=== PATIENT | female | born 1945 | race Caucasian/White ===

== ENCOUNTER 2017-03-01 15:00 | Emergency (ER) | payer OTHER ==
[2017-03-01 15:32] VITALS: BP 146/92; PULSE 76; TEMP 97.9; BMI 21.9
[2017-03-01] MEDS ORDERED: ACETAMINOPHEN 325 MG TABLET (FP) PO ONE (15:36)
--- NOTE | 2017-03-01 15:36 | PDOC ---
History of Present Illness - General History Source: Patient Exam Limitations: No Limitations - History of Present Illness Initial Comments: The patient is a 71 year old female who presents to the emergency department today for further evaluation of left hip pain for 2 days. The patient notes that she had hip surgery in March (2015). The patient states that her pain was untriggered and is exacerbated by walking and going up stairs. The patient took aleve and muscle relaxants in addition to ice packs and reports some relief of pain. She denies any other complaints at this time. The patient denies fever, chills, and sweats. The patient denies nausea, vomiting, and diarrhea. The patient denies chest pain, cough, and shortness of breath. PCP: Dr. Palma [phone] <Dony Jade - Last Filed: 03/01/17 15:54> <Danya Ruiz - Last Filed: 03/01/17 16:35> - General Chief Complaint: Pain Stated Complaint: LEFT HIP PAIN Time Seen by Provider: 03/01/17 15:13 Past History <Dony Jade - Last Filed: 03/01/17 15:54> - Past Medical History Hypercholesterolemia: Yes Other medical history: REYNAUDS, ARTHRITIC KNEES, - Psycho/Social/Smoking Cessation Hx Anxiety: No Suicidal Ideation: No Smoking History: Never smoked Hx Alcohol Use: Yes (NIGHTLY WINE) Drug/Substance Use Hx: No Substance Use Type: None <Danya Ruiz - Last Filed: 03/01/17 16:35> - Past Medical History Allergies/Adverse Reactions: Allergies Allergy/AdvReac Type Severity Reaction Status Date / Time turmeric AdvReac Unknown Verified 03/01/17 16:18 Home Medications: Ambulatory Orders Aspirin [Aspirin EC] 81 mg PO DAILY 03/01/17 Bimatoprost [Lumigan] 1 drop OU HS 03/01/17 Rosuvastatin Calcium [Crestor] 20 mg PO DAILY 03/01/17 Timolol 0.5% 1 drop OS HS 03/01/17 Ubidecarenone [Co Q-10] 400 mg PO DAILY 03/01/17 Verapamil HCl [Verapamil ER] 120 mg PO DAILY 03/01/17 Review of Systems - Review of Systems Able to Perform ROS?: Yes Comments:: GENERAL/CONSTITUTIONAL: No fever or chills. No weakness. HEAD, EYES, EARS, NOSE AND THROAT: No change in vision. No ear pain or discharge. No sore throat. GASTROINTESTINAL: No nausea, vomiting, diarrhea or constipation. GENITOURINARY: No dysuria, frequency, or change in urination. CARDIOVASCULAR: No chest pain or shortness of breath. RESPIRATORY: No cough, wheezing, or hemoptysis. MUSCULOSKELETAL: (+) Left hip pain. No neck or back pain. SKIN: No rash NEUROLOGIC: No headache, vertigo, loss of consciousness, or change in strength/ sensation. ENDOCRINE: No increased thirst. No abnormal weight change. HEMATOLOGIC/LYMPHATIC: No anemia, easy bleeding, or history of blood clots. ALLERGIC/IMMUNOLOGIC: No hives or skin allergy. <Dony Jade - Last Filed: 03/01/17 15:54> *Physical Exam - Vital Signs Last Vital Signs Temp Pulse Resp BP Pulse Ox 97.9 F 76 16 146/92 100 03/01/17 15:10 03/01/17 15:10 03/01/17 15:10 03/01/17 15:10 03/01/17 15:10 - Physical Exam Comments: GENERAL: Awake, alert, and fully oriented, in no acute distress HEAD: No signs of trauma EYES: PERRLA, EOMI, sclera anicteric, conjunctiva clear ENT: Auricles normal inspection, nares patent, Moist mucosa NECK: Normal ROM, supple, no lymphadenopathy, JVD, or masses LUNGS: Breath sounds equal, clear to auscultation bilaterally. No wheezes, and no crackles HEART: Regular rate and rhythm, normal S1 and S2, no murmurs, rubs or gallops ABDOMEN: Soft, nontender, normoactive bowel sounds. No guarding, no rebound. No masses EXTREMITIES: (+) Left hip lateral tenderness and pain with external rotation. Full range of motion, flexion, extension, abdominal reduction. Knee and ankle nontender. NEUROLOGICAL: Normal speech SKIN: Warm, Dry, normal turgor, no rashes or lesions noted. <Dony Jade - Last Filed: 03/01/17 15:54> - Vital Signs Last Vital Signs Temp Pulse Resp BP Pulse Ox 97.9 F 76 16 146/92 100 03/01/17 15:10 03/01/17 15:10 03/01/17 15:10 03/01/17 15:10 03/01/17 15:10 <Danya Ruiz - Last Filed: 03/01/17 16:35> ED Treatment Course - RADIOLOGY Radiology Studies Ordered: Category Date Time Status HIP & PELVIS-LEFT [RAD] Stat Radiology 03/01/17 15:20 Ordered <Danya Ruiz - Last Filed: 03/01/17 16:35> Medical Decision Making - Medical Decision Making 03/01/17 15:33 71 yo F with h/o prior hip injury ( tendinous ) left hip, treated conservatively with PRP and physical therapy, here today with hip pain exacerbation for 3 days. no f/c no trauma. pain worse with walking and going up stairs. and external rotation. full ROM abduction, adduction flex/ex. knee and ankle NT FROM. sensation intact. differential: repeat tendinous injury, bursitis, occult fx. plan xray hip, tylenol reassess. ирина outpt followup with surgeon. 03/01/17 16:33 pt xray negative for fracture. recommend adding tylenol to regimen of muscle relaxer and nsaid. followup outpt with orthopedist that had seen prior. given dr. Malagon or hattie. <Danya Ruiz - Last Filed: 03/01/17 16:35> *DC/Admit/Observation/Transfer - Attestations Scribe Attestion: Documentation prepared by Dony Jade, acting as medical investigator for Danya Ruiz MD. <Dony Jade - Last Filed: 03/01/17 15:54> - Discharge Dispostion Admit: No <Danya Ruiz - Last Filed: 03/01/17 16:35> Diagnosis at time of Disposition: Acute hip pain - Discharge Dispostion Disposition: HOME Condition at time of disposition: Good - Referrals Referrals: Amara Palma [Primary Care Provider] - 3 days Alon Bray MD [Staff Physician] - - Patient Instructions Printed Discharge Instructions: Help for Hip Pain Additional Instructions: you should resume physical therapy for your hip. [facility] with [facility]. you may also follow up with our orthopedist, Dr Bray or Dr. Malagon. see referral number, call to schedule. you can add tylenol 500 mg every 6 hours as needed for pain. use cane to support and ease pain.
== END 2017-03-01 16:40 | disposition home or self-care (01) ==
LOC: FER 15:00
DX: M25.552 Pain in left hip (principal); I73.00 Raynaud's syndrome without gangrene; E78.00 Pure hypercholesterolemia, unspecified
CPT/HCPCS: 73523-TC; 99282-25

== ENCOUNTER 2017-07-05 14:47 | Emergency (ER) | payer OTHER ==
[2017-07-05 14:50] VITALS: BP 168/115; PULSE 75; TEMP 98; BMI 21.9
[2017-07-05] MEDS ORDERED: traMADol HCL 50 MG TABLET PO ONE (15:29)
--- NOTE | 2017-07-05 15:29 | PDOC ---
History of Present Illness <Danielle Durbin - Last Filed: 07/05/17 15:44> - History of Present Illness Initial Comments: 07/05/17 16:14 The patient is a 72 year old female, with a significant past medical history of osteoarthritis and sciatica, who presents to the emergency department with right knee pain s/p twisting it 1.5 weeks ago. Patient says she twisted her right knee and saw her doctor, who drained it 3 days ago and had a cortisone injection which she normally gets due due her osteoarthritis. Patient says on Saturday morning (2 days ago), she felt better initially but then it became progressively worse. She is also complaining of swelling to the back and side of her right knee. She states that her pain is worsened when she flexes her leg. She was given anti-inflammatory medication from her doctor to alleviate the pain but says it gives little relief. She denies recent fevers, chills, headache or dizziness. She denies recent nausea, vomit, diarrhea or constipation. She denies recent chest pain or shortness of breath. Allergies: NKA Past surgical history: None reported. Social history: Nonsmoker. Denies EtOH use and recreational drug use. Primary Care Physician: <Maria Victoria Plaza - Last Filed: 07/05/17 16:18> - General Chief Complaint: Pain, Acute Stated Complaint: RIGHT KNEE PAIN Time Seen by Provider: 07/05/17 14:53 Past History - Past Medical History Hypercholesterolemia: Yes - Suicide/Smoking/Psychosocial Hx Smoking History: Never smoked Hx Alcohol Use: No Drug/Substance Use Hx: No Substance Use Type: None <Danielle Durbin - Last Filed: 07/05/17 15:44> <Maria Victoria Plaza - Last Filed: 07/05/17 16:18> - Past Medical History Allergies/Adverse Reactions: Allergies Allergy/AdvReac Type Severity Reaction Status Date / Time turmeric AdvReac Unknown Verified 07/05/17 14:51 Home Medications: Ambulatory Orders Aspirin [Aspirin EC] 81 mg PO DAILY 03/01/17 Bimatoprost [Lumigan] 1 drop OU HS 03/01/17 Rosuvastatin Calcium [Crestor] 20 mg PO DAILY 03/01/17 Timolol 0.5% 1 drop OS HS 06/02/17 Verapamil HCl [Verapamil ER] 120 mg PO DAILY 03/01/17 Tramadol HCl 50 mg PO Q6H PRN #12 tablet MDD 4 tablets 07/05/17 Review of Systems - Review of Systems Able to Perform ROS?: Yes Comments:: 07/05/17 16:17 GENERAL/CONSTITUTIONAL: No fever or chills. No weakness. MUSCULOSKELETAL: +right knee pain. No neck or back pain. SKIN: +edema around rt knee. No rash. <Maria Victoria Plaza - Last Filed: 07/05/17 16:18> *Physical Exam - Vital Signs Last Vital Signs Temp Pulse Resp BP Pulse Ox 98 F 75 18 168/115 100 07/05/17 14:47 07/05/17 14:47 07/05/17 14:47 07/05/17 14:47 07/05/17 14:47 <Danielle Durbin - Last Filed: 07/05/17 15:44> - Vital Signs Last Vital Signs Temp Pulse Resp BP Pulse Ox 98 F 75 18 168/115 100 07/05/17 14:47 07/05/17 14:47 07/05/17 14:47 07/05/17 14:47 07/05/17 14:47 - Physical Exam Comments: 07/05/17 16:15 GENERAL: Awake, alert, and fully oriented, in no acute distress EXTREMITIES: +slight effusion no erythema, no warmth, pain elicited on flexion of rt leg. Able to ambulate. +Kyung's to rt knee. Normal range of motion, no edema. No clubbing or cyanosis. No cords, erythema, or tenderness SKIN: +edema around rt knee. Warm, Dry, normal turgor, no rashes or lesions noted. <Maria Victoria Plaza - Last Filed: 07/05/17 16:18> ED Treatment Course - Medications Given in the ED: ED Medications Discontinued Medications Generic Name Dose Route Start Last Admin Trade Name Freq PRN Reason Stop Dose Admin Tramadol HCl 50 mg 07/05/17 15:29 07/05/17 15:32 Ultram - PO 07/05/17 15:30 50 mg ONCE ONE Administration <Maria Victoria Plaza - Last Filed: 07/05/17 16:18> Medical Decision Making - Medical Decision Making 07/05/17 15:44 Pt has an outpatient approval for MRI. I gave her tramadol for pain. Gave her information for central scheduling for [facility] so that she can have the test done here. <Danielle Durbin - Last Filed: 07/05/17 15:44> *DC/Admit/Observation/Transfer - Discharge Dispostion Admit: No <Danielle Durbin - Last Filed: 07/05/17 15:44> - Attestations Scribe Attestion: 07/05/17 16:18 Documentation prepared by Maria Victoria Plaza, acting as medical care evaluation specialist for Danielle Durbin MD. <Maria Victoria Plaza - Last Filed: 07/05/17 16:18> Diagnosis at time of Disposition: Right knee pain Qualifiers: Chronicity: acute Qualified Code(s): M25.561 - Pain in right knee - Discharge Dispostion Disposition: HOME Condition at time of disposition: Stable - Prescriptions Prescriptions: Tramadol HCl 50 mg PO Q6H PRN #12 tablet MDD 4 tablets PRN Reason: Severe Pain - Patient Instructions Printed Discharge Instructions: DI for Knee Pain
[2017-07-05] MEDS ORDERED: traMADol HCL 50 MG TABLET ONE (15:30)
== END 2017-07-05 16:16 | disposition home or self-care (01) ==
LOC: FER 14:47
DX: M25.561 Pain in right knee (principal); X58.XXXA Exposure to other specified factors, initial encounter; Y93.89 Activity, other specified; Y92.9 Unspecified place or not applicable; M19.90 Unspecified osteoarthritis, unspecified site; E78.00 Pure hypercholesterolemia, unspecified
CPT/HCPCS: 99281-25

== ENCOUNTER 2017-10-04 12:40 | Emergency (ER) | payer OTHER ==
[2017-10-04 12:48] VITALS: BP 132/75; PULSE 67; TEMP 97.7; BMI 21.9
--- NOTE | 2017-10-04 13:32 | PDOC ---
Suture Removal/Wound Check HPI - History of Present Illness Chief Complaint: Suture/Staple Removal (other) Stated Complaint: SUTURE REMOVAL Time Seen by Provider: 10/04/17 12:46 History Source: Yes: Patient Exam Limitations: Yes: No Limitations - Previous ED Treatment Tetanus Immunization: Yes: Up to Date - Onset of Previous Treatment Date of Occurence: 09/30/17 Past History - Past Medical History Allergies/Adverse Reactions: Allergies Allergy/AdvReac Type Severity Reaction Status Date / Time turmeric AdvReac Unknown Verified 10/04/17 12:43 Home Medications: Ambulatory Orders Aspirin [Aspirin EC] 81 mg PO DAILY 03/01/17 Bimatoprost [Lumigan] 1 drop OU HS 03/01/17 Rosuvastatin Calcium [Crestor] 20 mg PO DAILY 03/01/17 Timolol 0.5% 1 drop OS HS 03/01/17 Verapamil HCl [Verapamil ER] 120 mg PO DAILY 03/01/17 Ubidecarenone [Coq-10] 400 mg PO DAILY 10/04/17 COPD: No Hypercholesterolemia: Yes Other medical history: PERIPHERAL VASCULAR DISEASE, ARTHRITIS - Suicide/Smoking/Psychosocial Hx Smoking History: Never smoked Have you smoked in the past 12 months: No Hx Alcohol Use: (wine nightly) Drug/Substance Use Hx: No Substance Use Type: None Suture Removal/Wound Check PE - Physical Exam Laceration/Wound Check Symptoms: reports: None Comments: 10/04/17 13:32 Patient comes in for suture removal of this one suture on her lip. The suture was removed without difficulty. Patient tolerated well *DC/Admit/Observation/Transfer Diagnosis at time of Disposition: Visit for suture removal - Discharge Dispostion Disposition: HOME Condition at time of disposition: Stable - Referrals Referrals: Amara Palma [Primary Care Provider] - - Patient Instructions Printed Discharge Instructions: DI for Suture Removal Additional Instructions: Return to the emergency department immediately with ANY new, persistent or worsening symptoms. Continue any medications as previously prescribed by your physician. You should follow up with your primary doctor as soon as possible regarding today's emergency department visit. . Please make sure your doctor reviews the results of your emergency evaluation. Thank you for coming to the Emergency Department today for your care. It was a pleasure to see you today. Please note that your evaluation is INCOMPLETE until you follow-up with your doctor. - Post Discharge Activity
== END 2017-10-04 13:45 | disposition home or self-care (01) ==
LOC: FER 12:40
DX: Z48.02 Encounter for removal of sutures (principal)
CPT/HCPCS: 99282-25

== ENCOUNTER 2017-10-07 16:40 | Emergency (ER) | payer OTHER ==
[2017-10-07 17:06] VITALS: BP 111/70; PULSE 81; TEMP 98.2
--- NOTE | 2017-10-07 17:06 | PDOC ---
Suture Removal/Wound Check HPI <Ashli Juan - Last Filed: 10/07/17 17:20> - History of Present Illness History Source: Yes: Patient Exam Limitations: Yes: No Limitations - Onset of Previous Treatment Comment:: 10/07/17 18:59 Patient is a 72 year old female with a significant past medical history of osteoarthritis and sciatica who presents to the ED for suture removal from wound. Patient reports she was advised to come into the ED today for sterile suture removal. Patient currently has no other complaints while here in the ED. Denies chest pain, nausea. Denies fevers, chills. Denies contact with sick individuals, out of state travelling. Denies any other symptoms. Allergies: none Social history: No smoking. No alcohol. No illicit drugs. Surgical history: None PMD: None <Shady Gu - Last Filed: 10/07/17 19:00> - History of Present Illness Chief Complaint: Suture/Staple Removal (other) Stated Complaint: SUTURE REMOVAL Time Seen by Provider: 10/07/17 17:06 Past History - Past Medical History COPD: No DVT: No Hypercholesterolemia: Yes - Suicide/Smoking/Psychosocial Hx Smoking History: Never smoked Have you smoked in the past 12 months: No Hx Alcohol Use: (wine nightly) Drug/Substance Use Hx: No Substance Use Type: None <Ashli Juan - Last Filed: 10/07/17 17:20> <Shady Gu - Last Filed: 10/07/17 19:00> - Past Medical History Allergies/Adverse Reactions: Allergies Allergy/AdvReac Type Severity Reaction Status Date / Time turmeric AdvReac Unknown Verified 10/07/17 17:04 Home Medications: Ambulatory Orders Aspirin [Aspirin EC] 81 mg PO DAILY 03/01/17 Bimatoprost [Lumigan] 1 drop OU HS 03/01/17 Rosuvastatin Calcium [Crestor] 20 mg PO DAILY 03/01/17 Timolol 0.5% 1 drop OS HS 03/01/17 Verapamil HCl [Verapamil ER] 120 mg PO DAILY 03/01/17 Ubidecarenone [Coq-10] 400 mg PO DAILY 10/04/17 Suture Removal/Wound Check PE - Physical Exam Comments: 10/07/17 18:59 GENERAL: Awake, alert, and fully oriented, in no acute distress HEAD: +1.5 cm wound with sutures in place. +Well healed. No erythema. No discharge. No signs of trauma EYES: PERRLA, EOMI, sclera anicteric, conjunctiva clear ENT: Auricles normal inspection, hearing grossly normal, nares patent, oropharynx clear without exudates. Moist mucosa NECK: Normal ROM, supple, no lymphadenopathy, JVD, or masses LUNGS: Breath sounds equal, clear to auscultation bilaterally. No wheezes, and no crackles HEART: Regular rate and rhythm, normal S1 and S2, no murmurs, rubs or gallops ABDOMEN: Soft, nontender, normoactive bowel sounds. No guarding, no rebound. No masses EXTREMITIES: Normal range of motion, no edema. No clubbing or cyanosis. No cords, erythema, or tenderness NEUROLOGICAL: Cranial nerves II through XII grossly intact. Normal speech, normal gait SKIN: Warm, Dry, normal turgor, no rashes or lesions noted. <Shady Gu - Last Filed: 10/07/17 19:00> *Review of Systems - Review of Systems Able to Perform ROS?: Yes Comments:: 10/07/17 18:59 GENERAL/CONSTITUTIONAL: No fever or chills. No weakness. HEAD, EYES, EARS, NOSE AND THROAT: +Right side frontal wound. No change in vision. No ear pain or discharge. No sore throat. CARDIOVASCULAR: No chest pain or shortness of breath. RESPIRATORY: No cough, wheezing, or hemoptysis. GASTROINTESTINAL: No nausea, vomiting, diarrhea or constipation. GENITOURINARY: No dysuria, frequency, or change in urination. MUSCULOSKELETAL: No joint or muscle swelling or pain. No neck or back pain. SKIN: No rash NEUROLOGIC: No headache, vertigo, loss of consciousness, or change in strength/ sensation. ENDOCRINE: No increased thirst. No abnormal weight change. HEMATOLOGIC/LYMPHATIC: No anemia, easy bleeding, or history of blood clots. ALLERGIC/IMMUNOLOGIC: No hives or skin allergy. <Shady Gu - Last Filed: 10/07/17 19:00> Medical Decision Making - Medical Decision Making 10/07/17 17:20 pt presents to the Ed for suture removal. Sutures removed in the Ed. Wound well healed. Will discharge home. <Ashli Juan Last Filed: 10/07/17 17:20> *DC/Admit/Observation/Transfer - Discharge Dispostion Admit: No <Ashli Juan - Last Filed: 10/07/17 17:20> - Attestations Scribe Attestion: 10/07/17 18:59 Documentation prepared by Shady Gu, acting as chief medical officer for Ashli Juan MD, MD/DO. <Shady Gu - Last Filed: 10/07/17 19:00> Diagnosis at time of Disposition: Visit for suture removal - Discharge Dispostion Disposition: HOME Condition at time of disposition: Good - Patient Instructions Printed Discharge Instructions: DI for Suture Removal
[2017-10-07 17:09] VITALS: BMI 21.7
== END 2017-10-07 17:32 | disposition home or self-care (01) ==
LOC: FER 16:40
DX: Z48.02 Encounter for removal of sutures (principal)
CPT/HCPCS: 99281-25

== ENCOUNTER 2018-05-10 19:53 | Emergency (ER) | payer OTHER, MEDICARE ==
[2018-05-10 20:04] VITALS: BP 139/90; PULSE 67; TEMP 98.3; BMI 21.1
--- NOTE | 2018-05-10 20:33 | PDOC ---
History of Present Illness - General History Source: Patient Exam Limitations: No Limitations - History of Present Illness Initial Comments: 05/10/18 21:19 Patient is a 72 year old female with no significant past medical history who presents to the ED with complaints of right leg rash that began earlier this week. Patient reports noticing rash on her leg, which made her become worried for shingles or cellulitis prompting her to come into the ED for further evaluation. Denies chest pain, Sob. Denies nausea, vomiting. Denies fevers, chills. Denies contact with sick individuals, out of state travelling. Denies dysuria, hematuria. Denies diarrhea, constipation. Denies any other symptoms. Allergies: Turmeric Social history: No smoking. No alcohol. No illicit drugs. Surgical history: None PMD: Not on staff (Dr. Amara Palma) <Shady Gu - Last Filed: 05/10/18 21:19> <Xiao Grijalva - Last Filed: 05/10/18 23:12> - General Chief Complaint: Rash Stated Complaint: RASH LOWER LEG Past History <Shady Gu - Last Filed: 05/10/18 21:19> - Past Medical History COPD: No DVT: No Hypercholesterolemia: Yes - Suicide/Smoking/Psychosocial Hx Smoking History: Never smoked Have you smoked in the past 12 months: No Hx Alcohol Use: (wine nightly) Drug/Substance Use Hx: No Substance Use Type: None <Xiao Grijalva - Last Filed: 05/10/18 23:12> - Past Medical History Allergies/Adverse Reactions: Allergies Allergy/AdvReac Type Severity Reaction Status Date / Time turmeric AdvReac Unknown Verified 10/07/17 17:04 Home Medications: Ambulatory Orders Aspirin [Aspirin EC] 81 mg PO DAILY 03/01/17 Bimatoprost [Lumigan] 1 drop OU HS 03/01/17 Rosuvastatin Calcium [Crestor] 20 mg PO DAILY 03/01/17 Timolol 0.5% 1 drop OS HS 03/01/17 Verapamil HCl [Verapamil ER] 120 mg PO DAILY 03/01/17 Ubidecarenone [Coq-10] 400 mg PO DAILY 10/04/17 Review of Systems - Review of Systems Able to Perform ROS?: Yes Comments:: 05/10/18 21:19 GENERAL/CONSTITUTIONAL: No fever or chills. No weakness. HEAD, EYES, EARS, NOSE AND THROAT: No change in vision. No ear pain or discharge. No sore throat. CARDIOVASCULAR: No chest pain or shortness of breath. RESPIRATORY: No cough, wheezing, or hemoptysis. GASTROINTESTINAL: No nausea, vomiting, diarrhea or constipation. GENITOURINARY: No dysuria, frequency, or change in urination. MUSCULOSKELETAL: No joint or muscle swelling or pain. No neck or back pain. SKIN: +Right posterior leg rash. NEUROLOGIC: No headache, vertigo, loss of consciousness, or change in strength/ sensation. ENDOCRINE: No increased thirst. No abnormal weight change. HEMATOLOGIC/LYMPHATIC: No anemia, easy bleeding, or history of blood clots. ALLERGIC/IMMUNOLOGIC: No hives or skin allergy. <Shady Gu - Last Filed: 05/10/18 21:19> *Physical Exam - Vital Signs Last Vital Signs Temp Pulse Resp BP Pulse Ox 98.3 F 67 16 139/90 98 05/10/18 19:56 05/10/18 19:56 05/10/18 19:56 05/10/18 19:56 05/10/18 19:56 - Physical Exam Comments: 05/10/18 21:19 GENERAL: Awake, alert, and fully oriented, in no acute distress HEAD: No signs of trauma EYES: PERRLA, EOMI, sclera anicteric, conjunctiva clear ENT: Auricles normal inspection, hearing grossly normal, nares patent, oropharynx clear without exudates. Moist mucosa NECK: Normal ROM, supple, no lymphadenopathy, JVD, or masses LUNGS: Breath sounds equal, clear to auscultation bilaterally. No wheezes, and no crackles HEART: Regular rate and rhythm, normal S1 and S2, no murmurs, rubs or gallops ABDOMEN: Soft, nontender, normoactive bowel sounds. No guarding, no rebound. No masses EXTREMITIES: Normal range of motion, no edema. No clubbing or cyanosis. No cords, erythema, or tenderness NEUROLOGICAL: Cranial nerves II through XII grossly intact. Normal speech, normal gait SKIN: +Petechial rash on posterior aspect of distal lower extremity. +Small papules around T-6 T-7 area bilaterally, more on the anterior aspect. Warm, Dry, normal turgor, <Shady Gu - Last Filed: 05/10/18 21:19> - Vital Signs Last Vital Signs Temp Pulse Resp BP Pulse Ox 98.3 F 67 16 139/90 98 05/10/18 19:56 05/10/18 19:56 05/10/18 19:56 05/10/18 19:56 05/10/18 19:56 <Xiao Grijalva - Last Filed: 05/10/18 23:12> ED Treatment Course - LABORATORY CBC & Chemistry Diagram: 05/10/18 20:50 - ADDITIONAL ORDERS Additional order review: 05/10/18 20:50 RBC 4.62 MCV 96.0 MCHC 32.3 RDW 12.7 MPV 8.3 Neutrophils % 58.3 Lymphocytes % 29.8 Monocytes % 6.6 Eosinophils % 4.5 Basophils % 0.8 <Shady Gu - Last Filed: 05/10/18 21:19> - LABORATORY CBC & Chemistry Diagram: 05/10/18 20:50 <Xiao Grijalva - Last Filed: 05/10/18 23:12> Medical Decision Making - Medical Decision Making 05/10/18 21:34 Pt has a small area of petechiae on the back of her lower leg/distal aspect. Likely an area of pressure if she crosses her leg or banged it. Her platelet count is normal, and she has no other petechiae. She is on no meds associated with petechiae. She will be referred back to her PMD and she was reassured. I also have her the name of a vascular surgeon, as she has multiple varicosities on her lower leg. 05/10/18 23:11 C-reactive protein is normal. Pt stable for d/c <Xiao Grijalva - Last Filed: 05/10/18 23:12> *DC/Admit/Observation/Transfer - Attestations Scribe Attestion: 05/10/18 21:19 Documentation prepared by Shady Gu, acting as medical biller/coder for Xiao Grijalva MD. <Shady Gu - Last Filed: 05/10/18 21:19> - Discharge Dispostion Decision to Admit order: No <Xiao Grijalva - Last Filed: 05/10/18 23:12> Diagnosis at time of Disposition: Petechial rash, Cutaneous vasculitis - Discharge Dispostion Disposition: HOME Condition at time of disposition: Stable - Referrals Referrals: Amara Palma [Primary Care Provider] - Ethan Deleon MD [Non Staff, Medical] - - Patient Instructions - Post Discharge Activity
[2018-05-10 21:07] LABS: BASO % 0.8 % (0-2.0); EOS % 4.5 % (0-4.5); HEMATOCRIT 44.3 % (32.4-45.2); HEMOGLOBIN 14.3 GM/dl (10.7-15.3); LYMPH % 29.8 % (8-40); MCHC 32.3 g/dl (32.0-36.0); MEAN PLT VOLUME 8.3 fl (7.5-11.1); MONO % 6.6 % (3.8-10.2); NEUT % 58.3 % (42.8-82.8); PLATELET COUNT 322 K/MM3 (134-434); RBC 4.62 M/mm3 (3.60-5.2); RDW 12.7 % (11.6-15.6); WHITE BLOOD COUNT 6.1 K/mm3 (4.0-10.8)
== END 2018-05-10 21:23 | disposition home or self-care (01) ==
LOC: FER 19:53
DX: R21 Rash and other nonspecific skin eruption (principal); L95.9 Vasculitis limited to the skin, unspecified
CPT/HCPCS: 36415; 85025; 86140; 99281-25